=== PATIENT | female | born 1990 | race Caucasian/White ===

== ENCOUNTER 2020-11-19 07:10 | Day surgery (SDC) | payer OTHER ==
[2020-11-18 10:46] VITALS: BMI 36.6
[2020-11-19] MEDS ORDERED: AFRIN NASAL MIST 15 ML BOT ONE ×2 (07:32→08:26)
[2020-11-19 08:01] LABS: BHCG - Serum Negative (NEGATIVE); Pregs Control Background? CLEAR/WHITE (CLR/WHITE); Pregs Control Bar Appear? YES (CONTROL BAR)
[2020-11-19] MEDS ORDERED: Dexamethasone 20 MG/5 ML VIAL ONE (08:07)
[2020-11-19] MEDS ORDERED: Lidocaine 1% PF 5 ML VIAL ONE (08:07)
[2020-11-19] MEDS ORDERED: Rocuronium Bromide 10 MG/ML (10ML VIAL) ONE (08:07)
[2020-11-19] MEDS ORDERED: Ondansetron PF 4 MG/2 ML Vial ONE (08:07)
[2020-11-19] MEDS ORDERED: Glycopyrrolate 0.2 MG/ML 5 ML SYRINGE ONE (08:07)
[2020-11-19] MEDS ORDERED: PROPOFOL 200 MG/20 ML VIAL ONE (08:07)
[2020-11-19] MEDS ORDERED: Bacitracin Zinc Ointment 30 gm TUBE ONE (08:26)
[2020-11-19] MEDS ORDERED: EPINEPHrine 1 MG/ML AMP ONE (08:26)
[2020-11-19] MEDS ORDERED: Lidocaine 1% w/Epinephrine 1:100K 20 ML VIAL ONE (08:26)
[2020-11-19] MEDS ORDERED: Fentanyl 100 MCG/2 ML VIAL ONE ×3 (08:30→10:12)
[2020-11-19] MEDS ORDERED: Midazolam HCl 2 mg/2 ml Vial ONE (08:30)
[2020-11-19] MEDS ORDERED: HYDROcodone/Acetaminophen 5/325 mg Tablet ONE (11:12)
== END 2020-11-19 13:23 | disposition home or self-care (01) ==
LOC: SDC 07:10
PROVIDERS: ATTEND Specialist
PROC: 09SM0ZZ Reposition Nasal Septum, Open Approach (ICD-10-PCS; principal; 2020-11-19)
PROC: 09TL8ZZ Resection of Nasal Turbinate, Via Natural or Artificial Opening Endoscopic (ICD-10-PCS; principal; 2020-11-19)
PROC: 099Q8ZZ Drainage of Right Maxillary Sinus, Via Natural or Artificial Opening Endoscopic (ICD-10-PCS; principal; 2020-11-19)
PROC: 099R8ZZ Drainage of Left Maxillary Sinus, Via Natural or Artificial Opening Endoscopic (ICD-10-PCS; principal; 2020-11-19)
DX: J01.01 Acute recurrent maxillary sinusitis (principal); J32.0 Chronic maxillary sinusitis; J34.2 Deviated nasal septum; J34.3 Hypertrophy of nasal turbinates; G89.29 Other chronic pain; R51.9 Headache, unspecified; J30.1 Allergic rhinitis due to pollen; J30.81 Allergic rhinitis due to animal (cat) (dog) hair and dander; M26.601 Right temporomandibular joint disorder, unspecified; G25.81 Restless legs syndrome; E66.9 Obesity, unspecified; Z68.36 Body mass index [BMI] 36.0-36.9, adult; Z79.899 Other long term (current) drug therapy; Z91.041 Radiographic dye allergy status
CPT/HCPCS: 36415; 84703; 85014; J0171; J1100; J2250; J2405; J2704; J3010